=== PATIENT | female | born 1985 | race Caucasian/White ===

== ENCOUNTER 2017-03-04 07:12 | Emergency (ER) | payer OTHER ==
[~2017-03-04] VITALS: Ht 162.5 cm; Wt 140.2 kg
[~2017-03-04 07:12] MED LIST: ALBUTEROL0.09 MG/A2 INH; AMOXICILLIN500 MG PO; BACTRIM DS 8001 TA1 PO; BENTYL10 MG PO; BIRTH CONTROL1 EAC1 PO; CELEXA20 MG PO; CIPROFLOXACIN500 MG PO; CLINDAMYCIN HC300 MG PO; DOXYCYCLINE HY100 M3 PO; DUONEB 3 MG/3 ML3 M1 INH; FLONASE 0.05% 121 EA NAS; GEMFIBROZIL600 MG PO; HYDRODIURIL25 MG PO; K-Dur 20MEQ20 MEQ PO; LISINOPRIL20 MG PO; MEDROL DOSEPAK4 MG PO; METFORMIN HCL500 MG PO; MOTRIN400 MG PO; Motrin,Rufen800 MG PO; NITROFURANTOIN100 MG PO; NKHM; NORCO 5-325 TA1 EACH PO; PREDNICOT20 MG PO; PREDNISONE20 M1 PO; PRILOSEC20 MG PO; PYRIDIUM200 MG PO; SIMVASTATIN10 MG PO; SPRINTEC 35 MCG1 TA1 PO; TESSALON PERLE200 MG PO; TRAMADOL50 MG PO; ZANTAC150 MG PO; ZITHROMAX Z PA250 MG PO; ZITHROMAX Z-PA250 MG PO; ZITHROMAX250 MG PO; ZITHROMAX500 MG PO; ZOFRAN ODT4 MG SL; ZYRTEC10 MG PO; Zofran4 MG PO
[2017-03-04 08:00] LABS: BASO % 0.3 % (0.0-1.0); EOS # 0.1 10*3/uL (0.0-0.4); HEMATOCRIT 34.8 % (37.0-47.0); HEMOGLOBIN 11.3 g/dl (12.0-16.0); IG # 0.1 10*3/uL (0.0-0.1); LYMPH # 1.7 10*3/uL (1.3-4.4); LYMPH % 14.2 % (27.0-41.0); MEAN CELL VOLUME 84.5 fl (81.0-99.0); MEAN CORPUSCULAR HGB 27.4 pg (27.0-31.0); MEAN CORPUSCULAR HGB CONC 32.5 g/dl (33.0-37.0); MEAN PLATELET VOLUME 11.3 fl (9.6-12.3); MONO # 0.8 10*3/uL (0.1-1.0); MONO % 6.4 % (3.0-9.0); NEUT # 9.1 10*3/uL (2.3-7.9); NEUT % 77.2 % (47.0-73.0); PLATELET COUNT AUTOMATED 309 10*3/uL (130-400); RED BLOOD COUNT 4.12 10*6/uL (4.10-5.10); RED CELL DISTRI WIDTH 14.8 % (0-14.5); WHITE BLOOD COUNT 11.7 10*3/uL (4.8-10.8)
[2017-03-04 08:17] LABS: ALBUMIN 2.7 gm/dl (3.1-4.5); ALKALINE PHOSPHATASE 77 U/L (45-117); BILIRUBIN, TOTAL 0.2 mg/dl (0.2-1.0); BUN 4 mg/dl (7-24); C-REACTIVE PROTEIN 1.79 MG/DL (0-0.3); CARBON DIOXIDE 21 mmol/L (21-32); CHLORIDE 105 mmol/L (98-107); EST GLOM FILT AFRICAN AMERICAN > 60 ml/min; GLUCOSE 97 mg/dL (65-99); MAGNESIUM 1.9 mg/dL (1.5-2.1); POTASSIUM 3.5 mmol/L (3.5-5.1); SGOT/AST 15 IU/L (3-35); SGPT/ALT 15 U/L (12-78); SODIUM 136 mmol/L (136-145); TOTAL PROTEIN 7.6 gm/dL (6.4-8.2)
[2017-03-04 08:22] LABS: BILIRUBIN 1+ (NEGATIVE); BLOOD NEGATIVE (NEGATIVE); CLARITY SL CLOUDY (CLEAR); COLOR YELLOW (YELLOW); GLUCOSE NEGATIVE (NEGATIVE); KETONE 1+ (NEGATIVE); LEUKO ESTERASE NEGATIVE (NEGATIVE); NITRITE NEGATIVE (NEGATIVE); PH 5.5 (5.0-9.0); PROTEIN TRACE (NEGATIVE); SPECIFIC GRAVITY >= 1.030 (1.005-1.030)
[2017-03-04 08:42] LABS: BACTERIA 1+; URINE REFLEX COMMENT NO (NO)
== END 2017-03-04 10:09 | disposition home or self-care (01) ==
LOC: ED 07:12
PROVIDERS: Emergency Medicine
DX: O26.892 Other specified pregnancy related conditions, second trimester (principal); E86.0 Dehydration; I10 Essential (primary) hypertension; Z3A.28 28 weeks gestation of pregnancy; Z88.0 Allergy status to penicillin; Z88.1 Allergy status to other antibiotic agents; Z88.2 Allergy status to sulfonamides

== ENCOUNTER 2017-03-16 16:04 | Emergency (ER) | payer OTHER ==
[~2017-03-16] VITALS: Ht 162.5 cm; Wt 139.7 kg
--- NOTE | ~2017-03-16 | EKG ---
[place], [place] ELECTROCARDIOGRAM REPORT NAME: CLAUDIO MOISE UNIT #: [id number] ROOM: DOCTOR: EMRE FERGUSON MD BIRTHDATE: [birth year] DOS: 03/16/2017 TIME: 1637 hours. Normal sinus rhythm at 98 beats per minute. The tracing is normal. No previous tracing is available for comparison. EMRE FERGUSON MD CM:EKGRPT:ELECTROCARDIOGRAM REPORT 1811 30 EMRE FERGUSON MD
[2017-03-16 16:31] LABS: BASO % 0.3 % (0.0-1.0); EOS # 0.1 10*3/uL (0.0-0.4); EOS % 0.8 % (1.0-4.0); HEMATOCRIT 35.8 % (37.0-47.0); HEMOGLOBIN 11.7 g/dl (12.0-16.0); LYMPH # 2.1 10*3/uL (1.3-4.4); LYMPH % 17.7 % (27.0-41.0); MEAN CELL VOLUME 83.3 fl (81.0-99.0); MEAN CORPUSCULAR HGB 27.2 pg (27.0-31.0); MEAN CORPUSCULAR HGB CONC 32.7 g/dl (33.0-37.0); MEAN PLATELET VOLUME 11.1 fl (9.6-12.3); MONO # 0.7 10*3/uL (0.1-1.0); MONO % 6.1 % (3.0-9.0); NEUT # 8.9 10*3/uL (2.3-7.9); NEUT % 74.2 % (47.0-73.0); PLATELET COUNT AUTOMATED 341 10*3/uL (130-400); RED CELL DISTRI WIDTH 14.9 % (0-14.5)
[2017-03-16 16:47] LABS: ALBUMIN 2.7 gm/dl (3.1-4.5); ALKALINE PHOSPHATASE 87 U/L (45-117); BUN 4 mg/dl (7-24); CHLORIDE 104 mmol/L (98-107); POTASSIUM 3.6 mmol/L (3.5-5.1); SGOT/AST 15 IU/L (3-35); SGPT/ALT 14 U/L (12-78); SODIUM 137 mmol/L (136-145); TOTAL PROTEIN 7.7 gm/dL (6.4-8.2)
[2017-03-16 16:52] LABS: TROPONIN I < 0.015 ng/ml (<0.045)
[2017-03-16 17:28] LABS: BILIRUBIN NEGATIVE (NEGATIVE); BLOOD NEGATIVE (NEGATIVE); CLARITY SL CLOUDY (CLEAR); COLOR YELLOW (YELLOW); GLUCOSE NEGATIVE (NEGATIVE); KETONE NEGATIVE (NEGATIVE); LEUKO ESTERASE NEGATIVE (NEGATIVE); NITRITE NEGATIVE (NEGATIVE); SPECIFIC GRAVITY <= 1.005 (1.005-1.030); UROBILINOGEN 0.2 E.U./dl (0.2-1.0)
[2017-03-16 17:38] LABS: BACTERIA 4+; RBC 0-2 rbc/hpf (0-2)
== END 2017-03-16 20:19 | disposition home or self-care (01) ==
LOC: ED 16:04
PROVIDERS: Nurse Practitioner Family
DX: O26.893 Other specified pregnancy related conditions, third trimester (principal); R42 Dizziness and giddiness; R03.0 Elevated blood-pressure reading, without diagnosis of hypertension; K21.9 Gastro-esophageal reflux disease without esophagitis; Z88.0 Allergy status to penicillin; Z88.1 Allergy status to other antibiotic agents; Z79.899 Other long term (current) drug therapy

== ENCOUNTER → 2019-10-02 | Outpatient (CLI) | payer OTHER ==
[~2019-10-02] MED LIST changes: +ACCU-CHEK FAST1 EACH MC; +ALCOHOL PADS1 EACH MC; +Humalog SQ; +INSULIN PEN NE1 EACH MC; +SIMVASTATIN20 MG PO; +TEST STRIPS1 EACH MC; +VITAMIN D5000 UNI1 PO
[2019-10-02 10:29] LABS: BASO # 0.1 10*3/uL (0.0-0.1); BASO % 0.7 % (0.0-1.0); EOS # 0.1 10*3/uL (0.0-0.4); EOS % 1.7 % (1.0-4.0); HEMATOCRIT 39.9 % (37.0-47.0); HEMOGLOBIN 13.3 g/dl (12.0-16.0); LYMPH # 2.7 10*3/uL (1.3-4.4); LYMPH % 32.4 % (27.0-41.0); MEAN CELL VOLUME 84.9 fl (81.0-99.0); MEAN CORPUSCULAR HGB 28.3 pg (27.0-31.0); MEAN CORPUSCULAR HGB CONC 33.3 g/dl (33.0-37.0); MEAN PLATELET VOLUME 11.6 fl (9.6-12.3); MONO # 0.5 10*3/uL (0.1-1.0); MONO % 6.5 % (3.0-9.0); NEUT # 4.9 10*3/uL (2.3-7.9); NEUT % 58.3 % (47.0-73.0); PLATELET COUNT AUTOMATED 321 10*3/uL (130-400); RED CELL DISTRI WIDTH 13.4 % (0-14.5); WHITE BLOOD COUNT 8.3 10*3/uL (4.8-10.8)
[2019-10-02 10:49] LABS: ALBUMIN 3.6 gm/dl (3.1-4.5); ALKALINE PHOSPHATASE 84 U/L (45-117); BUN 7 mg/dl (7-24); CHLORIDE 104 mmol/L (98-107); CHOLESTEROL 239 mg/dL (<200); CREATININE 0.64 mg/dL (0.55-1.02); HDL CHOLESTEROL 42 mg/dl (40-60); POTASSIUM 3.6 mmol/L (3.5-5.1); SGOT/AST 10 IU/L (3-35); SGPT/ALT 24 U/L (12-78); SODIUM 137 mmol/L (136-145)
[2019-10-02 10:51] LABS: FREE T4 1.15 ng/dl (0.76-1.46); LDL CHOLESTEROL 139 mg/dL (9-159); TRIGLYCERIDES 288 mg/dl (<150); VLDL CHOLESTEROL 58 mg/dL (6-40)
== END | disposition home or self-care (01) ==
LOC: LAB 09:46
PROVIDERS: Internal Medicine Endocrinology, Diabetes & Metabolism
DX: E11.65 Type 2 diabetes mellitus with hyperglycemia (principal); R06.00 Dyspnea, unspecified; R51 Headache; E78.00 Pure hypercholesterolemia, unspecified; E66.3 Overweight; E55.9 Vitamin D deficiency, unspecified

== ENCOUNTER 2021-04-16 17:50 | Emergency (ER) | payer OTHER ==
[2021-04-16] MEDS ORDERED: KENALOG 0.025%15 GM T (19:25)
== END 2021-04-16 19:42 | disposition home or self-care (01) ==
LOC: ED 17:50
DX: R21 Rash and other nonspecific skin eruption (principal); Z88.0 Allergy status to penicillin; Z88.2 Allergy status to sulfonamides; Z88.1 Allergy status to other antibiotic agents

== ENCOUNTER 2021-12-25 17:42 | Emergency (ER) | payer BC ==
[~2021-12-25] VITALS: Ht 162.5 cm; Wt 113.4 kg
[~2021-12-25 17:42] MED LIST changes: +KENALOG 0.025%15 GM T
[2021-12-25] MEDS ORDERED: SIMVASTATIN40 MG PO (19:42)
[2021-12-25] MEDS ORDERED: METFORMIN HYD1000 MG PO (19:42)
[2021-12-25] MEDS ORDERED: ASPIRIN ADULT L81 M2 PO (19:42)
[2021-12-25] MEDS ORDERED: OZEMPIC1 MG/0.75 SQ (19:42)
[2021-12-25 20:04] LABS: BASO % 0.5 % (0.0-1.0); EOS # 0.1 10*3/uL (0.0-0.4); EOS % 0.7 % (1.0-4.0); HEMATOCRIT 36.1 % (37.0-47.0); LYMPH # 0.7 10*3/uL (1.3-4.4); LYMPH % 7.9 % (27.0-41.0); MEAN CELL VOLUME 84.9 fl (81.0-99.0); MEAN CORPUSCULAR HGB 29.2 pg (27.0-31.0); MEAN CORPUSCULAR HGB CONC 34.3 g/dl (33.0-37.0); MEAN PLATELET VOLUME 11.5 fl (9.6-12.3); MONO # 1.1 10*3/uL (0.1-1.0); MONO % 12.5 % (3.0-9.0); NEUT # 6.8 10*3/uL (2.3-7.9); NEUT % 77.9 % (47.0-73.0); PLATELET COUNT AUTOMATED 224 10*3/uL (130-400); RED BLOOD COUNT 4.25 10*6/uL (4.10-5.10); RED CELL DISTRI WIDTH 13.3 % (0-14.5); WHITE BLOOD COUNT 8.8 10*3/uL (4.8-10.8)
[2021-12-25 20:20] LABS: ALKALINE PHOSPHATASE 66 U/L (45-117); BUN 4 mg/dl (7-24); CHLORIDE 102 mmol/L (98-107); CREATININE 0.55 mg/dL (0.55-1.02); POTASSIUM 3.3 mmol/L (3.5-5.1); SGOT/AST 19 IU/L (3-35); SGPT/ALT 23 U/L (12-78); SODIUM 134 mmol/L (136-145); TOTAL PROTEIN 7.1 gm/dL (6.4-8.2)
[2021-12-25] MEDS ORDERED: ZOFRAN4 MG PO (21:36)
== END 2021-12-25 21:57 | disposition home or self-care (01) ==
LOC: ED 17:42
PROVIDERS: Internal Medicine
DX: U07.1 COVID-19 (principal); E87.6 Hypokalemia; R73.9 Hyperglycemia, unspecified; K21.9 Gastro-esophageal reflux disease without esophagitis; I10 Essential (primary) hypertension; Z88.0 Allergy status to penicillin; Z88.1 Allergy status to other antibiotic agents; Z88.2 Allergy status to sulfonamides; Z98.890 Other specified postprocedural states

== ENCOUNTER 2022-06-24 17:29 | Emergency (ER) | payer BC ==
[~2022-06-24] VITALS: Ht 162.5 cm; Wt 117.9 kg
[~2022-06-24 17:29] MED LIST changes: +ASPIRIN ADULT L81 M2 PO; +METFORMIN HYD1000 MG PO; +OZEMPIC1 MG/0.75 SQ; +SIMVASTATIN40 MG PO; +ZOFRAN4 MG PO
[2022-06-24] MEDS ORDERED: TAMIFLU 75MG CA75 MG PO (20:16)
== END 2022-06-24 20:27 | disposition home or self-care (01) ==
LOC: ED 17:29
DX: J10.1 Influenza due to other identified influenza virus with other respiratory manifestations (principal); Z79.899 Other long term (current) drug therapy; Z79.82 Long term (current) use of aspirin; Z98.890 Other specified postprocedural states

== ENCOUNTER 2023-03-31 04:59 | Emergency (ER) | payer OTHER ==
[~2023-03-31] VITALS: Ht 162.5 cm; Wt 117.9 kg
[~2023-03-31 04:59] MED LIST changes: +TAMIFLU 75MG CA75 MG PO
[2023-03-31 05:54] LABS: BASO % 0.4 % (0.0-1.0); EOS # 0.3 10*3/uL (0.0-0.4); EOS % 2.9 % (1.0-4.0); HEMATOCRIT 35.3 % (37.0-47.0); LYMPH # 1.5 10*3/uL (1.3-4.4); LYMPH % 13.9 % (27.0-41.0); MEAN CELL VOLUME 83.1 fl (81.0-99.0); MEAN CORPUSCULAR HGB 27.5 pg (27.0-31.0); MEAN CORPUSCULAR HGB CONC 33.1 g/dl (33.0-37.0); MEAN PLATELET VOLUME 11.5 fl (9.6-12.3); MONO # 0.9 10*3/uL (0.1-1.0); MONO % 8.1 % (3.0-9.0); NEUT # 8.1 10*3/uL (2.3-7.9); NEUT % 73.3 % (47.0-73.0); PLATELET COUNT AUTOMATED 338 10*3/uL (130-400); RED BLOOD COUNT 4.25 10*6/uL (4.10-5.10); RED CELL DISTRI WIDTH 13.5 % (0-14.5)
[2023-03-31] MEDS ORDERED: OMNICEF300 MG PO ×2 (06:02→09:37)
[2023-03-31 06:24] LABS: ALKALINE PHOSPHATASE 92 U/L (46-116); CHLORIDE 103 mmol/L (98-107); POTASSIUM 3.7 mmol/L (3.4-5.1); SGPT/ALT 8 U/L (10-49); TOTAL PROTEIN 7.3 gm/dL (6.0-8.0)
[2023-03-31 06:31] LABS: BUN < 5 mg/dl (9-23)
== END 2023-03-31 06:38 | disposition home or self-care (01) ==
LOC: ED 04:59
PROVIDERS: Internal Medicine
DX: J18.9 Pneumonia, unspecified organism (principal); I10 Essential (primary) hypertension; K21.9 Gastro-esophageal reflux disease without esophagitis; E11.9 Type 2 diabetes mellitus without complications; Z88.0 Allergy status to penicillin; Z88.2 Allergy status to sulfonamides; Z88.8 Allergy status to other drugs, medicaments and biological substances; Z98.890 Other specified postprocedural states; Z20.822 Contact with and (suspected) exposure to COVID-19

== ENCOUNTER 2023-11-23 16:02 | Emergency (ER) | payer OTHER ==
[~2023-11-23] VITALS: Ht 162.5 cm; Wt 131.1 kg
[~2023-11-23 16:02] MED LIST changes: +OMNICEF300 MG PO
[2023-11-23] MEDS ORDERED: BUPROPION HYDR150 M3 PO (16:13)
[2023-11-23] MEDS ORDERED: LISINOPRIL10 M1 PO (16:13)
[2023-11-23] MEDS ORDERED: MOUNJARO2.5 MG/0.1 SQ (16:13)
[2023-11-23] MEDS ORDERED: PANTOPRAZOLE SO40 MG PO (16:14)
[2023-11-23 16:41] LABS: BASO % 0.4 % (0.0-1.0); EOS # 0.3 10*3/uL (0.0-0.4); EOS % 2.5 % (1.0-4.0); HEMATOCRIT 31.1 % (37.0-47.0); LYMPH # 1.3 10*3/uL (1.3-4.4); LYMPH % 12.9 % (27.0-41.0); MEAN CELL VOLUME 77.6 fl (81.0-99.0); MEAN CORPUSCULAR HGB 22.9 pg (27.0-31.0); MEAN CORPUSCULAR HGB CONC 29.6 g/dl (33.0-37.0); MEAN PLATELET VOLUME 10.6 fl (9.6-12.3); MONO # 0.9 10*3/uL (0.1-1.0); MONO % 9.3 % (3.0-9.0); NEUT # 7.4 10*3/uL (2.3-7.9); NEUT % 74.4 % (47.0-73.0); PLATELET COUNT AUTOMATED 360 10*3/uL (130-400); RED BLOOD COUNT 4.01 10*6/uL (4.10-5.10); RED CELL DISTRI WIDTH 15.9 % (0-14.5); WHITE BLOOD COUNT 9.9 10*3/uL (4.8-10.8)
[2023-11-23 17:02] LABS: ALKALINE PHOSPHATASE 83 U/L (46-116); BUN < 5 mg/dl (9-23); CHLORIDE 104 mmol/L (98-107); POTASSIUM 3.7 mmol/L (3.4-5.1); SGPT/ALT 13 U/L (5-49); TOTAL PROTEIN 7.2 gm/dL (6.0-8.0)
[2023-11-23] MEDS ORDERED: AVPAK AZITHROM250 MG PO (17:59)
[2023-11-23] MEDS ORDERED: PREDNISONE50 MG PO (17:59)
[2023-11-23] MEDS ORDERED: IBUPROFEN 400 MG TAB PO ONE (18:00)
== END 2023-11-23 18:20 | disposition home or self-care (01) ==
LOC: ED 16:02
PROVIDERS: Internal Medicine
DX: J18.9 Pneumonia, unspecified organism (principal); Z20.822 Contact with and (suspected) exposure to COVID-19; I10 Essential (primary) hypertension; K21.9 Gastro-esophageal reflux disease without esophagitis; E11.9 Type 2 diabetes mellitus without complications; Z88.0 Allergy status to penicillin; Z88.2 Allergy status to sulfonamides; Z88.8 Allergy status to other drugs, medicaments and biological substances; Z98.890 Other specified postprocedural states

== ENCOUNTER 2024-03-02 17:47 | Inpatient (IN) | payer OTHER ==
[~2024-03-02] VITALS: Ht 162.6 cm; Wt 127.9 kg
[~2024-03-02 17:47] MED LIST changes: +AVPAK AZITHROM250 MG PO; +BUPROPION HYDR150 M3 PO; +LISINOPRIL10 M1 PO; +MOUNJARO2.5 MG/0.1 SQ; +PANTOPRAZOLE SO40 MG PO; +PREDNISONE50 MG PO
[2024-03-02 18:28] VITALS: BP 141/89
[2024-03-02 18:50] LABS: BASO # 0.1 10*3/uL (0.0-0.1); BASO % 0.4 % (0.0-1.0); EOS # 0.1 10*3/uL (0.0-0.4); EOS % 0.5 % (1.0-4.0); HEMATOCRIT 32.5 % (37.0-47.0); LYMPH # 2.7 10*3/uL (1.3-4.4); LYMPH % 14.9 % (27.0-41.0); MEAN CELL VOLUME 71.3 fl (81.0-99.0); MEAN CORPUSCULAR HGB 21.9 pg (27.0-31.0); MEAN CORPUSCULAR HGB CONC 30.8 g/dl (33.0-37.0); MEAN PLATELET VOLUME 10.3 fl (9.6-12.3); MONO # 1.5 10*3/uL (0.1-1.0); MONO % 7.9 % (3.0-9.0); NEUT # 13.9 10*3/uL (2.3-7.9); NEUT % 75.8 % (47.0-73.0); PLATELET COUNT AUTOMATED 509 10*3/uL (130-400); RED BLOOD COUNT 4.56 10*6/uL (4.10-5.10); RED CELL DISTRI WIDTH 17.6 % (0-14.5); WHITE BLOOD COUNT 18.4 10*3/uL (4.8-10.8)
[2024-03-02 18:51] LABS: BILIRUBIN Negative (Negative); BLOOD 2+ (Negative); CLARITY Turbid (Clear); COLOR Yellow (Yellow); GLUCOSE Negative (Negative); KETONE Trace (Negative); LEUKO ESTERASE 2+ (Negative); NITRITE Negative (Negative); PH 6.5 (4.5-8.0); SPECIFIC GRAVITY 1.015 (1.001-1.030); UROBILINOGEN 0.2 E.U./dl (0.0-1.0)
[2024-03-02 19:04] LABS: BACTERIA 2+; MUCOUS 1+; RBC 21-30 rbc/hpf (0-2); WBC 41-50 wbc/hpf (0-5)
[2024-03-02 19:04] LABS: CHLORIDE 102 mmol/L (98-107); POTASSIUM 3.2 mmol/L (3.4-5.1)
[2024-03-02 19:05] LABS: BUN < 5 mg/dl (9-23)
[2024-03-02] MEDS ORDERED: SODIUM CHLORIDE 0.9% 1,000 ML IV SCH (19:30)
[2024-03-02] MEDS ORDERED: Ceftriaxone Sodium 1 GM/10 ML SYR IV ONE (19:30)
[2024-03-02] MEDS ORDERED: HUMALOG100 UNIT/1 SC (19:52)
[2024-03-02] MEDS ORDERED: TOUJEO SOL300 UNIT/1 SC (19:52)
[2024-03-02] MEDS ORDERED: BISACODYL 10 MG SUPP R PRN (21:15)
[2024-03-02] MEDS ORDERED: Magnesium Hydroxide 30 ML UDC PO PRN (21:15)
[2024-03-02] MEDS ORDERED: ACETAMINOPHEN 325 MG TAB PO PRN (21:15)
[2024-03-02] MEDS ORDERED: ACETAMINOPHEN 650 MG SUPP R PRN (21:15)
[2024-03-02] MEDS ORDERED: BISACODYL 5 MG TAB PO PRN (21:15)
[2024-03-02] MEDS ORDERED: Ondansetron Hydrochloride 4 MG/2 ML VIAL IV PRN (21:15)
[2024-03-02] MEDS ORDERED: POTASSIUM CHLORIDE 20 MEQ TAB PO ONE (21:25)
[2024-03-02] MEDS ORDERED: INSULIN LISPRO 1 UNIT/0.01 ML SQ SCH (22:00)
[2024-03-02] MEDS ORDERED: SIMVASTATIN 20 MG TAB PO SCH (22:00)
[2024-03-02] MEDS ORDERED: Insulin Glargine, Recombinan 1 UNIT/0.01 ML SC SCH (22:00)
[2024-03-02] MEDS ORDERED: DEXTROSE 10 % IN WATER 250 ML IV PRN (22:00)
[2024-03-02 23:35] VITALS: BP 98/50
[2024-03-03] VITALS (7 sets, daily range): BP systolic 86–141; BP diastolic 43–89
[2024-03-03 07:02] LABS: BASO # 0.1 10*3/uL (0.0-0.1); BASO % 0.6 % (0.0-1.0); EOS # 0.1 10*3/uL (0.0-0.4); EOS % 0.7 % (1.0-4.0); HEMATOCRIT 25.6 % (37.0-47.0); LYMPH # 2.1 10*3/uL (1.3-4.4); LYMPH % 19.2 % (27.0-41.0); MEAN CELL VOLUME 72.9 fl (81.0-99.0); MEAN CORPUSCULAR HGB 21.9 pg (27.0-31.0); MEAN CORPUSCULAR HGB CONC 30.1 g/dl (33.0-37.0); MEAN PLATELET VOLUME 10.7 fl (9.6-12.3); NEUT # 7.5 10*3/uL (2.3-7.9); NEUT % 70.1 % (47.0-73.0); RED BLOOD COUNT 3.51 10*6/uL (4.10-5.10); RED CELL DISTRI WIDTH 17.7 % (0-14.5); WHITE BLOOD COUNT 10.7 10*3/uL (4.8-10.8)
[2024-03-03 07:15] LABS: ALKALINE PHOSPHATASE 76 U/L (46-116); CHLORIDE 110 mmol/L (98-107); CHOLESTEROL 112 mg/dL (<200); FREE T4 1.18 ng/dl (0.89-1.76); LDL CHOLESTEROL 48 mg/dL (9-159); TOTAL PROTEIN 6.1 gm/dL (6.0-8.0); TRIGLYCERIDES 161 mg/dl (<150)
[2024-03-03 07:24] LABS: BUN < 5 mg/dl (9-23); SGPT/ALT < 7 U/L (5-49)
[2024-03-03] MEDS ORDERED: POTASSIUM CHLORIDE 20 MEQ TAB PO ONE (07:30)
[2024-03-03] MEDS ORDERED: INSULIN LISPRO 1 UNIT/0.01 ML SQ SCH (07:30)
[2024-03-03] MEDS ORDERED: Pantoprazole Sodium 40 MG TAB PO SCH (07:30)
[2024-03-03 08:08] LABS: PLATELET COUNT AUTOMATED 343 10*3/uL (130-400)
[2024-03-03] MEDS ORDERED: ASPIRIN ENTERIC COATED 81 MG TAB PO SCH (10:00)
[2024-03-03] MEDS ORDERED: buPROPion XL 150 MG TAB PO SCH (10:00)
[2024-03-03] MEDS ORDERED: LISINOPRIL 10 MG TAB PO SCH (10:00)
[2024-03-03] MEDS ORDERED: SIMVASTATIN 20 MG TAB PO SCH (10:00)
[2024-03-03] MEDS ORDERED: Cholecalciferol 5,000 IU CAP (125 MCG) PO SCH (10:00)
[2024-03-03] MEDS ORDERED: Enoxaparin Sodium 40 MG/0.4 ML SYR SC SCH (10:00)
[2024-03-03] MEDS ORDERED: Ceftriaxone Sodium 1 GM,IV 1 EA in SYRINGE INFUSION 10 ML IV SCH (18:00)
[2024-03-04] VITALS: BP 93/57
[2024-03-04 06:33] LABS: BASO % 0.4 % (0.0-1.0); EOS # 0.2 10*3/uL (0.0-0.4); EOS % 2.1 % (1.0-4.0); HEMATOCRIT 26.4 % (37.0-47.0); LYMPH # 2.1 10*3/uL (1.3-4.4); LYMPH % 23.2 % (27.0-41.0); MEAN CELL VOLUME 74.4 fl (81.0-99.0); MEAN CORPUSCULAR HGB 21.4 pg (27.0-31.0); MEAN CORPUSCULAR HGB CONC 28.8 g/dl (33.0-37.0); MEAN PLATELET VOLUME 10.1 fl (9.6-12.3); MONO # 0.7 10*3/uL (0.1-1.0); MONO % 7.7 % (3.0-9.0); NEUT % 66.2 % (47.0-73.0); PLATELET COUNT AUTOMATED 348 10*3/uL (130-400); RED BLOOD COUNT 3.55 10*6/uL (4.10-5.10); RED CELL DISTRI WIDTH 17.2 % (0-14.5); WHITE BLOOD COUNT 9.1 10*3/uL (4.8-10.8)
[2024-03-04 06:51] LABS: CHLORIDE 107 mmol/L (98-107); POTASSIUM 3.4 mmol/L (3.4-5.1)
[2024-03-04 06:52] LABS: BUN < 5 mg/dl (9-23)
[2024-03-04 08:00] VITALS: BP 123/74
[2024-03-04 12:00] VITALS: BP 117/76
[2024-03-04] MEDS ORDERED: OMNICEF300 MG PO (14:32)
[2024-03-04] MEDS ORDERED: FEROSUL325 M1 PO (14:33)
[2024-03-05] MEDS ORDERED: VIBRAMYCIN HYC100 MG PO (13:24)
== END 2024-03-04 15:04 | disposition home or self-care (01) | DRG 872 ==
LOC: ED 17:47 → EDHOLD 20:01 → 4E 03-03 16:19
PROVIDERS: Physician Assistant Medical; Student in an Organized Health Care Education/Training Program; ADMIT Internal Medicine; ATTEND Internal Medicine
DX: A41.9 Sepsis, unspecified organism (principal); E87.20 Acidosis, unspecified; N13.6 Pyonephrosis; Z68.42 Body mass index [BMI] 45.0-49.9, adult; R65.20 Severe sepsis without septic shock; I10 Essential (primary) hypertension; F32.A Depression, unspecified; K21.9 Gastro-esophageal reflux disease without esophagitis; E66.01 Morbid (severe) obesity due to excess calories; E87.6 Hypokalemia; R31.9 Hematuria, unspecified; D50.9 Iron deficiency anemia, unspecified; D75.839 Thrombocytosis, unspecified; E11.65 Type 2 diabetes mellitus with hyperglycemia; Z79.4 Long term (current) use of insulin; Z88.1 Allergy status to other antibiotic agents; Z88.0 Allergy status to penicillin; Z88.2 Allergy status to sulfonamides; Z88.8 Allergy status to other drugs, medicaments and biological substances; Z80.8 Family history of malignant neoplasm of other organs or systems; Z98.891 History of uterine scar from previous surgery; Z82.49 Family history of ischemic heart disease and other diseases of the circulatory system; Z83.3 Family history of diabetes mellitus; E78.1 Pure hyperglyceridemia; E55.9 Vitamin D deficiency, unspecified